=== PATIENT | female | born 1950 | race Caucasian/White ===

== ENCOUNTER 2017-10-10 22:56 | Emergency (ER) | payer MEDICARE, BC ==
--- NOTE | 2017-10-10 23:36 | Emergency Department Record ---
History of Present Illness - General Chief complaint: Rash Stated complaint: RASH ON LEGS SPREADING UP TORSO Time Seen by Provider: 10/10/17 23:21 Source: Patient, Family Mode of Arrival: Ambulatory Limitations: No limitations - History of Present Illness Initial comments: 67 yo female presents with a rash that has been persistent and worsening for about 3 weeks. The rash started on the inner right lower leg then spread to the left inner lower leg. She now has an itch rash also on the back, areas of the chest and arms. No fevers. She does not feel ill. She had a culture of the original site performed that was negative. She was treated with antibiotics , a cream (unknown), and five days of steroids about 2 weeks ago. She called to see her conservation science officer but was unable to get an appointment. No headaches, nausea, vomiting. She only takes Prozac. She recently went to [place] but the rash preceded the trip. MD complaint: Rash -: Week(s) (3) Location: Generalized Quality: Other Consistency: Other Improves with: None Worsens with: Other Context: None Associated symptoms: Denies other symptoms, Itching Treatments Prior to Arrival: Other - Related Data Previous Rx's Medication Instructions Recorded Prednisone [Prednisone 20Mg] 20 mg PO BID #12 tab 10/11/17 Allergies Allergy/AdvReac Type Severity Reaction Status Date / Time bacitracin Allergy RASH Verified 10/10/17 23:29 [From Neosporin ([id number])] cefaclor [From Ceclor] Allergy PT UNSURE Unverified 07/02/17 08:35 OF REACTION neomycin Allergy RASH Verified 10/10/17 23:29 [From Neosporin ([id number])] polymyxin B Allergy RASH Verified 10/10/17 23:29 [From Neosporin ([id number])] Review of Systems Constitutional: Denies: Chills, Fever, Malaise, Weakness Eyes: Denies: Eye discharge ENT: Denies: Congestion, Throat pain Respiratory: Denies: Cough, Dyspnea Cardiovascular: Denies: Chest pain, Palpitations, Syncope Endocrine: Denies: Fatigue Gastrointestinal: Denies: Abdominal pain, Diarrhea, Nausea, Vomiting Genitourinary: Denies: Dysuria, Urgency Musculoskeletal: Denies: Arthralgia, Back pain Skin: Reports: As per HPI, Change in color, Rash Neurological: Denies: Confusion, Headache, Vertigo Psychiatric: Denies: Anxiety Hematological/Lymphatic: Denies: Blood Clots, Easy bleeding, Easy bruising, Swollen glands Past Medical History - SOCIAL HISTORY Smoking Status: Former smoker - RESPIRATORY Hx Respiratory Disorders: No - CARDIOVASCULAR Hx Cardio Disorders: No - NEURO Hx Neuro Disorders: No - GI Hx GI Disorders: Yes Hx Reflux: Yes - Hx Genitourinary Disorders: No - ENDOCRINE Hx Endocrine Disorders: No - MUSCULOSKELETAL Hx Musculoskeletal Disorders: Yes - PSYCH Hx Psych Problems: Yes Hx Depression: Yes - HEMATOLOGY/ONCOLOGY Hx Hematology/Oncology Disorders: Yes Hx Anemia: Yes Family Medical History Hx Cancer: Father, Mother, Grandparents Hx Kidney Disease: Father Physical Exam - General General Appearance: Alert, Oriented x3, Cooperative, No acute distress Limitations: No limitations - Head Head exam: Atraumatic, Normal inspection - Eye Eye exam: Normal appearance - ENT ENT exam: Normal exam Ear exam: Normal external inspection Nasal Exam: Normal inspection Mouth exam: Normal external inspection Teeth exam: Normal inspection - Neck Neck exam: Normal inspection - Respiratory Respiratory exam: Normal lung sounds bilaterally, Other - Cardiovascular Cardiovascular Exam: Regular rate, Normal rhythm, Normal heart sounds - GI/Abdominal GI/Abdominal exam: Soft. negative: Tenderness - Rectal Rectal exam: Deferred - exam: Deferred - Extremities Extremities exam: Full ROM. negative: Normal inspection, Pedal edema, Tenderness Image of Full Body: 1 - macular, slightly raised, papular, scaly, no pus or weeping, non nghia 2 - macular, slightly raised, papular, scaly, no pus or weeping, non nghia 3 - papular diffusely scattered, erythematous, oval shaped, palpable, no pustules or oozing. No vesicles - Back Back exam: Denies: Normal inspection - Neurological Neurological exam: Alert, Oriented X3 - Psychiatric Psychiatric exam: Normal affect, Normal mood. negative: Agitated, Anxious - Skin Skin exam: Rash Course - Reevaluation(s) Reevaluation #1: The rash the patient presents with is about 3 weeks in duration. She does not appear acutely ill. Normal vitals. I recommend labs and close follow up with her conservation science officer this week. 10/10/17 23:40 10/11/17 00:29 The labs were reviewed No acute changes on the CBC,CMP,CRP, and ESR Medical Decision Making - Lab Data Result diagrams: 10/10/17 23:41 10/10/17 23:41 Disposition Disposition: Discharge Clinical Impression: Rash Disposition: Home, Self-Care Condition: (1) Good Instructions: Acute Rash (ED) Additional Instructions: Call your conservation science officer Thursday for close follow up Return to be seen if you have swelling, fever, vomiting or any new symptoms Prescriptions: Prednisone [Prednisone 20Mg] 20 mg PO BID #12 tab Forms: Patient Portal Access Time of Disposition: 00:33 Quality - Quality Measures Quality Measures: N/A - Blood Pressure Screening Does Patient Have Any of the Following: No Blood Pressure Classification: Pre-Hypertensive BP Reading Systolic Measurement: 122 Diastolic Measurement: 62 Screening for High Blood Pressure: < Pre-Hypertensive BP, F/U Documented > [ G8950] Pre-Hypertensive Follow-up Interventions: Referral to alternative/primary care provider.
[2017-10-10 23:50] LABS: BASO % 0.7 % (0-6); GRAN % 43.6 % (47-80); HEMATOCRIT 38.1 % (35.0-47.0); HEMOGLOBIN 12.3 gm/dl (11.6-16.0); LYMPH % 36.2 % (16-45); MEAN CORPUSCULAR HEMOGLOBIN 30.7 pg (27-33); MEAN CORPUSCULAR HGB CONC 32.3 g/dl (32-36); MEAN PLATELET VOLUME 9.3 fl (7.4-10.4); MONO % 12.5 % (0-9); PLATELET COUNT 216 K/uL (130-400); RED BLOOD COUNT 4.01 M/uL (3.80-5.40)
[2017-10-11 00:11] LABS: BLOOD UREA NITROGEN 22 mg/dL (8-23); CREATININE 0.6 mg/dL (0.5-0.9); EST GLOMERULAR FILTRATION RATE > 60 mL/min
[2017-10-11 00:12] LABS: TOTAL PROTEIN 6.1 g/dL (6.6-8.7)
[2017-10-11 00:14] LABS: GLUCOSE,RANDOM 92 mg/dL (74-109)
[2017-10-11 00:16] LABS: ALB/GLOB RATIO 1.8 (1.1-1.8); ALBUMIN 3.9 g/dL (4.0-5.0); ALT/SGPT 13 U/L (<33); AST/SGOT 17 U/L (10.0-35.0)
[2017-10-11 00:17] LABS: ALKALINE PHOSPHATASE 85 U/L (35-104); C-REACTIVE PROTEIN 0.29 mg/dL (<0.5)
[2017-10-11 00:26] LABS: ERYTHROCYTE SEDIMENTATION RATE 11 mm/hr (0-30)
[2017-10-11] MEDS ORDERED: PREDNISONE 20 MG TAB PO ONE (00:33)
== END 2017-10-11 00:58 | disposition home or self-care (01) ==
LOC: ER 22:56
DX: R21 Rash and other nonspecific skin eruption (principal); Z87.891 Personal history of nicotine dependence
CPT/HCPCS: 99283 ×2; 85025; 85651; 86140; 80053; J7512

== ENCOUNTER 2017-12-30 19:20 | Emergency (ER) | payer MEDICARE, BC ==
[2017-12-30] MEDS ORDERED: DEXAMETHASONE SOD PHOSPHATE 10MG/ML VIAL PO ONE (19:30)
--- NOTE | 2017-12-30 19:42 | Emergency Department Record ---
History of Present Illness - General Chief complaint: ENT Stated complaint: COUGH,SINUS CONGESTION 4TH WEEK Time Seen by Provider: 12/30/17 19:29 Source: Patient Mode of Arrival: Ambulatory Limitations: No limitations - History of Present Illness Initial comments: 67 yo female presents with a cough that has been ongoing for about one month. The cough has been non productive. No fevers. No hemoptysis. No edema. She states the last several days the congestion is now in the sinus area with clear drainage. She is a non smoker. She was seen in the [facility]. She had a breathing treatment and was given tessalon. complaint: Other ([facility]) -: Month(s) (1) Severity: Moderate Consistency: Constant Improves with: None Worsens with: Other (with congestion) Context-Epistaxis: Other Context- Dental: Other Associated Symptoms: Cough, Sore throat, Other (Sinus drainage) - Related Data Previous Rx's Medication Instructions Recorded Azithromycin [Zithromax] 250 mg PO DAILY #6 tab 12/30/17 Methylprednisolone [Medrol Dose 4 mg PO DAILY #1 tab.ds.pk 12/30/17 Pack] Allergies Allergy/AdvReac Type Severity Reaction Status Date / Time bacitracin Allergy RASH Verified 12/30/17 19:38 [From Neosporin ([id number])] cefaclor [From Ceclor] Allergy PT UNSURE Verified 12/30/17 19:38 OF REACTION clindamycin Allergy C-diff Verified 12/30/17 19:38 neomycin Allergy RASH Verified 12/30/17 19:38 [From Neosporin ([id number])] polymyxin B Allergy RASH Verified 12/30/17 19:38 [From Neosporin ([id number])] Review of Systems Constitutional: Denies: Chills, Fever, Malaise, Weakness Eyes: Denies: Eye discharge ENT: Reports: Congestion, Throat pain. Denies: Ear pain Respiratory: Reports: Cough. Denies: Dyspnea, Wheezes Cardiovascular: Denies: Chest pain, Palpitations, Syncope Endocrine: Denies: Fatigue Gastrointestinal: Denies: Abdominal pain, Diarrhea, Nausea, Vomiting Genitourinary: Denies: Dysuria Musculoskeletal: Denies: Arthralgia, Myalgia Skin: Denies: Bruising, Change in color, Rash Neurological: Denies: Headache Psychiatric: Denies: Anxiety Hematological/Lymphatic: Denies: Blood Clots, Easy bleeding, Easy bruising, Swollen glands Past Medical History - SOCIAL HISTORY Smoking Status: Former smoker - RESPIRATORY Hx Respiratory Disorders: No - CARDIOVASCULAR Hx Cardio Disorders: No - NEURO Hx Neuro Disorders: No - GI Hx GI Disorders: Yes Hx Reflux: Yes - Hx Genitourinary Disorders: No - ENDOCRINE Hx Endocrine Disorders: No - MUSCULOSKELETAL Hx Musculoskeletal Disorders: Yes - PSYCH Hx Psych Problems: Yes Hx Depression: Yes - HEMATOLOGY/ONCOLOGY Hx Hematology/Oncology Disorders: Yes Hx Anemia: Yes Family Medical History Hx Cancer: Father, Mother, Grandparents Hx Kidney Disease: Father Physical Exam - General General Appearance: Alert, Oriented x3, Cooperative, No acute distress Limitations: No limitations - Head Head exam: Atraumatic, Normal inspection - Eye Eye exam: Normal appearance, PERRL. negative: Conjunctival injection, Scleral icterus - ENT ENT exam: Normal exam, Mucous membranes moist, Normal orophraynx, TM's normal bilaterally Ear exam: Normal external inspection Nasal Exam: Discharge (clear), Sinus tenderness. negative: Dried blood Mouth exam: Normal external inspection Teeth exam: Normal inspection Throat exam: Normal inspection. negative: Tonsillar erythema, Tonsillomegaly, Tonsillar exudate, R peritonsillar mass, L peritonsillar mass - Neck Neck exam: Normal inspection. negative: Lymphadenopathy - Respiratory Respiratory exam: Normal lung sounds bilaterally. negative: Decreased breath sounds, Prolonged expiratory, Respiratory distress, Rhonchi, Stridor, Wheezes - Cardiovascular Cardiovascular Exam: Regular rate, Normal rhythm, Normal heart sounds - Rectal Rectal exam: Deferred - exam: Deferred - Extremities Extremities exam: Normal inspection. negative: Pedal edema - Back Back exam: Denies: CVA tenderness (R), CVA tenderness (L) - Neurological Neurological exam: Alert, Oriented X3 - Psychiatric Psychiatric exam: Normal affect, Normal mood - Skin Skin exam: Dry, Intact, Normal color, Warm Course Vital Signs 12/30/17 19:26 Temperature 98.4 F Pulse Rate [ 76 Pulse Ox Probe] Respiratory 24 Rate Blood Pressure 133/80 [Left Arm] Pulse Ox 94 L - Reevaluation(s) Reevaluation #1: 12/30/17 19:54 The patient is relaxed, no conversational dyspnea, clear lungs, occasional harsh cough The CXR was reviewed by me. No acute infiltrate. No acute changes from prior. Disposition Disposition: Discharge Clinical Impression: URI (upper respiratory infection) Disposition: Home, Self-Care Condition: (1) Good Instructions: Upper Respiratory Infection (ED) Additional Instructions: Return to the ER if worse, fever, short of breath or any new concerns Call to follow up with [facility] Take the prescriptions as directed Prescriptions: Azithromycin [Zithromax] 250 mg PO DAILY #6 tab Methylprednisolone [Medrol Dose Pack] 4 mg PO DAILY #1 tab.ds.pk Forms: Patient Portal Access Time of Disposition: 19:56 Quality - Quality Measures Quality Measures: N/A - Blood Pressure Screening Does Patient Have Any of the Following: No Blood Pressure Classification: Pre-Hypertensive BP Reading Systolic Measurement: 124 Diastolic Measurement: 66 Screening for High Blood Pressure: < Pre-Hypertensive BP, F/U Documented > [ G8950] Pre-Hypertensive Follow-up Interventions: Referral to alternative/primary care provider.
--- NOTE | 2017-12-31 10:53 | RADIOLOGY REPORT ---
EXAM: CHEST, TWO VIEWS HISTORY: COUGH. TECHNIQUE: PA and lateral views of the chest were obtained. Comparison: Chest radiograph 05/01/15. FINDINGS: The cardiac silhouette is within normal size limits. The thoracic aorta is mildly calcified and slightly tortuous. The pulmonary vasculature is nondilated. No focal consolidation. No pleural effusion or pneumothorax. No definite acute osseous findings. IMPRESSION: NO ACUTE LUNG FINDINGS. JOB NUMBER: [id number] MTDD
== END 2017-12-30 20:12 | disposition home or self-care (01) ==
LOC: ER 19:20
DX: J06.9 Acute upper respiratory infection, unspecified (principal); R05 Cough; J02.9 Acute pharyngitis, unspecified; Z87.891 Personal history of nicotine dependence
CPT/HCPCS: 71046; 99283

== ENCOUNTER 2018-08-05 12:56 | Day surgery (SDC) | payer MEDICARE, BC ==
[2018-08-05] MEDS ORDERED: PROPOFOL 10 MG/ML VIAL IV ONE (12:57)
[2018-08-05] MEDS ORDERED: LIDOCAINE 2% MDV (20MG/ML) 20ML VIAL IV ONE (12:57)
--- NOTE | 2018-08-06 08:00 | Operative Note ---
OPERATION: COLONOSCOPY. PREOPERATIVE DIAGNOSIS: Family history of colon cancer. POSTOPERATIVE DIAGNOSIS: Sigmoid diverticulosis. PROCEDURE: After informed consent was obtained from the patient, she was placed in the left lateral decubitus position in the endoscopy suite, sedated and monitored by the department of anesthesia. Digital rectal exam was unremarkable. A well-lubricated [id number] colonoscope was inserted into the rectum and advanced to the cecum. Preparation quality was excellent. The cecum and cecal bulb were entered several times, all unremarkable. The cecum was unremarkable in all views. The ileocecal valve, appendiceal orifice, ascending colon, transverse colon, descending colon, sigmoid colon, and rectum were unremarkable other than diverticulosis being seen in the sigmoid colon of moderate severity. The rectum was unremarkable in forward and J-turn views. The endoscope was straightened, the rectal ampulla deflated, and the endoscope was removed. RECOMMENDATIONS: I would suggest the patient follow a high-fiber diet. I will discuss the next interval exam with her. She does have a second-degree family history. Perhaps a 10-year followup would be more appropriate but I will discuss the matter further with her before final recommendations are made. As always, thank you for allowing me to participate in the healthcare of your patients. CC: MD MICHAEL Williamson
== END 2018-08-05 14:37 | disposition home or self-care (01) ==
LOC: HOP 12:56
PROVIDERS: ATTEND Internal Medicine Gastroenterology
DX: Z12.11 Encounter for screening for malignant neoplasm of colon (principal); K57.30 Diverticulosis of large intestine without perforation or abscess without bleeding; Z80.0 Family history of malignant neoplasm of digestive organs
CPT/HCPCS: 00812; G0105